=== PATIENT | male | born 1990 | race Caucasian/White ===

== ENCOUNTER 2024-12-09 12:01 | Emergency (ER) | payer BC, SELFPAY ==
--- OUTSIDE RECORDS SUMMARY | 2024-12-09 12:04 | XMS REPORT | Continuity of Care Document ---
Author Name Unknown Address [address] [facility] [place] [address] [facility] Address [address] [facility] [place] [address] Care Team Providers Care Jordan Man Name Role Phone PCP, NO Primary Care Physician Unavailab Natasha Davidson Attending Clinician Unavailable ALISHA MICHEL Attending Clinician Unavailable NAN AGUILAR Attending Clinician Unavailable Physician, No Primary or Family Admitting Clinic gunjan Unavailable Payers Payer Name Policy Type Policy Number Effective Date Expirati on Date Source Allergies, Adverse Reactions, Alerts Allergy Name Allergy Type Status Severity Reaction(s) Onset Date Inactive Date Treating Clinician Comments Source Sulfa (Sulfona mide Antibiot ics) DA Active U UNKN 2023-03 0 00:00: 00 [facility] are [facility] Sulfur Dioxide Allergy to substanc e Active [facility] Social History Smoking Status Start Date Stop Date Source Never Smoker [facility] Medications Ordered Medication Name Filled Medication Name Start Date Stop Date Current Medication? Ordering Clinician Indication Dosage Frequency Signature (SIG) Comments Components Source Bromfed DM 2 mg-30 mg-10 mg/5 mL oral syrup Take 10 mL every 4 hours by oral route. Bromfed DM 2 mg-30 mg-10 mg/5 mL oral syrup Take 10 mL every 4 hours by oral route. No 10mL Q4H Bromfed DM 2 mg-30 mg-10 mg/5 mL oral syrup Take 10 mL every 4 hours by oral route. [facility] Medrol (Angus) 4 mg tablets in a dose pack take as directed Medrol (Angus) 4 mg tablets in a dose pack take as directed No Medrol (Angus) 4 mg tablets in a dose pack take as directed [facility] ondansetron 4 mg dis[address] ing tablet Place 1 tablet twice a day by translingua l route. ondansetron 4 [address] tablet Place 1 tablet twice a day by translingua l route. No 1 BID ondansetro n 4 mg disinte[address] ting tablet Place 1 tablet twice a day by translingu al route. [facility] Vital Signs Vital Name Observation Time Observation Value Comments S ource Body Weight 2024-08-10 00:00:00 4548 [oz_av] [facility] BP Diastolic 2024-08-10 00:00:00 86 mm[Hg] [facility] BMI (Body Mass Index) 2024-08-10 00:00:00 38.6 kg/m2 [facility] Height 2024-08-10 00:00:00 72 [in_i] [facility] BP Systolic 2024-08-10 00:00:00 126 mm[Hg] [facility] BMI (Body Mass Index) 2024-05-05 00:00:00 38.6 kg/m2 [facility] BP Systolic 2024-05-05 00:00:00 130 mm[Hg] [facility] Body Weight 2024-05-05 00:00:00 4552 [oz_av] [facility] BP Diastolic 2024-05-05 00:00:00 85 mm[Hg] [facility] Height 2024-05-05 00:00:00 72 [in_i] [facility] BMI (Body Mass Index) 2024-04-08 00:00:00 38.4 kg/m2 [facility] BP Systolic 2024-04-08 00:00:00 121 mm[Hg] [facility] Height 2024-04-08 00:00:00 72 [in_i] [facility] Body Weight 2024-04-08 00:00:00 4534 [oz_av] [facility] BP Diastolic 2024-04-08 00:00:00 80 mm[Hg] [facility] Body Weight 2024-03-30 00:00:00 4560 [oz_av] [facility] BP Systolic 2024-03-30 00:00:00 150 mm[Hg] [facility] BP Diastolic 2024-03-30 00:00:00 91 mm[Hg] [facility] BMI (Body Mass Index) 2024-03-30 00:00:00 38.7 kg/m2 [facility] Height 2024-03-30 00:00:00 72 [in_i] [facility] Encounters Start Date/Time End Date/Time Encounter Type Admission Type Attending [facility] Care Department Encounter ID Source 2023-12-02 12:35:36 Emergency HFD HFD [id number] [facility] Depart ent 2024-08-10 00:00:00 2024-08-10 00:00:00 Abigail Beckett, INDUSTRIAL SAFETY AND HEALTH MANAGER: [address], [place] [id number] , Ph[address] [facility]_ Main Office [id number] [facility] 2024-05-05 00:00:00 2024-05-05 00:00:00 Abigail Beckett, INDUSTRIAL SAFETY AND HEALTH MANAGER: [address], [place] [id number] , Ph[address] [facility]_ Main Office [id number] [facility] 2024-04-08 00:00:00 2024-04-08 00:00:00 Abigail Beckett, INDUSTRIAL SAFETY AND HEALTH MANAGER: [address], [place] [address] , Ph[address] [facility]_ Main Office [id number] [facility] 2024-03-30 00:00:00 2024-03-30 00:00:00 Abigail Beckett, INDUSTRIAL SAFETY AND HEALTH MANAGER: [address], [place] [id number] , Ph. [facility]_ Main Office [id number] [facility] 2023-12-02 11:58:00 2023-12-02 15:55:00 Emergency EM Natasha Francis [facility] [id number] [facility] are [facility] 2023-09-10 13:25:44 2023-09-10 13:25:44 Outpatient ALISHA MICHEL [facility] [id number] [facility] 2023-07-23 16:38:27 2023-07-23 16:38:27 Outpatient NAN AGUILAR [facility] [id number] [facility] Results Test Description Test Time Test Comments Results Result Co mments Source [facility] - Serum or [id number] 00:00:00* Test Item Value Reference Range Interpretation Comme nts sodium (test code = sodium) 139 mmol/L 136-145 potassium (test code = potassium) 4.8 mmol/L 3.5-5.5 chloride (test code = chloride) 100 mmol/L 98-107 CO2 (test code = CO2) 23 mmol/ L 23-31 glucose (test code = glucose) 74 mg/dL 70-99 BUN (test code = BUN) 14 mg/dL 6-20 creatinine (test code = creatinine) 1.1 mg/dL 0.7-1.2 calcium (test code = calcium) 9.7 mg/dL 8.5-10.5 total protein (test code = total protein) 7.2 g/dL 6.0-8.3 albumin (test code = albumin) 4.5 g/dL 3.5-5.2 total bilirubin (test code = total bilirubin) 0.4 mg/dL 0.0-1.2 alkaline phosphatase (test code = alkaline phosphatase) 110 U/L 44-147 AST (SGOT) (test code = AST (SGOT)) 22 U/L 0-40 ALT (SGPT) (test code = ALT (SGPT)) 33 U/L 0-41 globulin (test code = globulin) 2.7 g/dL 1.7-3.7 A/G ratio (test code = A/G ratio) 1.7 calc. 1.1-2.9 BUN/creatinine ratio (test code = BUN/creatinine ratio) 12.7 calc 10.0-28.0 eGFR (test code = eGFR) 90.902 mL/min/1.73A? >60.000 [facility] - Serum or [id number] 00:00:00* Test Item Value Reference Range Interpretation Comme nts cholesterol (test code = cholesterol) 213 mg/dL 0-200 H triglycerides (test code = triglycerides) 91 mg/dL 10-150 HDL cholesterol (test code = HDL cholesterol) 53 mg/dL >40 HDL risk factor (test code = HDL risk factor) 4.0 calc. VLDL cholesterol (test code = VLDL cholesterol) 18 calc dldl (test code = dldl) 145 mg/dL <100 H [facility] and TSH panel - Serum or [id number] 00:00:00* Test Item Value Reference Range Interpretation Comme nts TSH (test code = TSH) 1.080 uIU/mL 0.500-4.530 free T4 (test code = free T4) 1.33 NG/dL 0.80-1.73 [facility] Auto Differential panel - [id number] 00:00:00* Test Item Value Reference Range Interpretation Comme nts WBC (test code = WBC) 7.5 10 3.7-12.0 RBC (test code = RBC) 4.88 10 3.60-5.50 HGB (test code = HGB) 15.0 g/dL 13.5-17.5 HCT (test code = HCT) 46.4 % 35.0-53.0 MCV (test code = MCV) 95.1 um 80.0-102.0 MCH (test code = MCH) 30.8 pg 25.0-34.1 MCHC (test code = MCHC) 32.4 g/dL 29.0-35.0 RDW (test code = RDW) 13.8 % 10.9-16.9 plt (test code = plt) 314 10 136-392 MPV (test code = MPV) 9.3 um 7.4-11.1 gran % (test code = gran %) 53.1 % 36.0-78.0 lymph % (test code = lymph %) 33.4 % 12.0-48.0 mono % (test code = mono %) 10.8 % 0.0-13.0 eos % (test code = eos %) 2 % 0-8 baso % (test code = baso %) 1 % 0-2 gran # (test code = gran #) 4.0 10 1.2-6.8 lymph # (test code = lymph #) 2.5 10 1.2-3.2 mono # (test code = mono #) 0.8 10 0.3-0.8 eos # (test code = eos #) 0.1 10 0.0-0.4 baso # (test code = baso #) 0.1 10 0.0-0.2 [facility] - Urine by Automated test strip 2024-04-08 11:32:00* Test Item Value Reference Range Interpretation Comme nts Leukocytes (test code = Leukocytes) Negative Nitrite (test code = Nitrite) negative Urobilinogen (test code = Urobilinogen) 0.2 Protein (test code = Protein) Negative pH (test code = pH) 6.0 Blood (test code = Blood) Negative Specific [place] (test code = Specific [place]) 1.025 Ketone (test code = Ketone) Negative Bilirubin (test code = Bilirubin) Negative Glucose (test code = Glucose) Negative Appearance (test code = Appearance) Clear Color (test code = Color) Pale Yellow [facility] Medical[facility] HIGH [id number] 13:24:00* Test Item Value Reference Range Interpretation Comme nts TROP-I HIGH SENSITIVITY (test code = TROPIHS) < 2 pg/mL 0-20 N 99th Percentile Upper Reference Limit (URL):Females: 14 pg/mLMales: 20 pg/mL The demonstration of a rise or fall (over a 2hour period)of 5 pg/mL or greater may be clinically significant. A riseor fall of 20 pg/mL or greater is considered definitivelysignificant of possible acute myocardial injury. NOTE: Results from different methodologies should not becompared as quantitative results vary by method. COMPREHENSIVE METABOLIC [id number] 13:18:00* Test Item Value Reference Range Interpretation Comme nts SODIUM (test code = NA) 137 mmol/L 135-145 N POTASSIUM (test code = K) 3.9 mmol/L 3.6-5.0 N CHLORIDE (test code = CL) 104 mmol/L 101-111 N CARBON DIOXIDE (test code = CO2) 23 mmol/L 21-31 N GLUCOSE (test code = GLU) 111 mg/dl 70-100 H BLOOD UREA NITROGEN (test code = BUN) 13 mg/dl 6-20 N GLOMERULAR FILTRATION RATE (test code = GFR) >=60 max estimate >60 The Glomerular Filtration Rate is a calculated parameterbased on serum Creatinine, patient age and sex. GFR valuesless than 60 mL/min/1.73 square meters are indicative ofChronic Kidney Disease. Values less than 15 mL/min/1.73square meters indicate Kidney failure. The calculation forGFR is based on the CKD-EPI (202) calculation. This formulais race indifferent and is the recommended formula for GFRby the National Kidney Foundation for Adults.The GFR will not calculate if the sex is unknown or if thepatient's age is <18 years. CREATININE (test code = CREAT) 1.04 mg/dL 0.64-1.27 N TOTAL PROTEIN (test code = PROT) 7.2 g/dL 6.7-8.2 N ALBUMIN (test code = ALB) 3.8 g/dL 3.2-5.5 N CALCIUM (test code = CA) 9.1 mg/dL 8.5-10.5 N BILIRUBIN TOTAL (test code = BILT) 0.90 mg/dL 0.2-1.3 N SGOT/AST (test code = AST) 29 U/L 10-42 N SGPT/ALT (test code = ALT) 40 U/L 10-60 N ALKALINE PHOSPHATASE (test code = ALKP) 82 U/L 42-121 N INDEX HEMOLYSIS (test code = HEMINDEX) 0 Index/DL See_Comment [Automated messa ge] The system which generated this result transmitted reference range: 1 NORMAL. The reference range was not used to interpret this result as normal/abnormal. INDEX ICTERIC (test code = ICTINDEX) 1 Index/DL See_Comment [Automated messa ge] The system which generated this result transmitted reference range: 1 NORMAL. The reference range was not used to interpret this result as normal/abnormal. INDEX LIPEMIA (test code = LIPINDEX) 0 Index/DL See_Comment [Automated messa ge] The system which generated this result transmitted reference range: 1 NORMAL. The reference range was not used to interpret this result as normal/abnormal. CBC W/AUTO [id number] 12:53:00* Test Item Value Reference Range Interpretation Comme nts WHITE BLOOD CELL (test code = WBC) 8.3 x10 3/uL 3.2-11.5 N RED BLOOD CELL (test code = RBC) 5.09 x10(6)/m 4.20-5.70 N HEMOGLOBIN (test code = HGB) 15.7 g/dL 12.9-17.3 N HEMATOCRIT (test code = HCT) 46.6 % 38.7-51.0 N MEAN CELL VOLUME (test code = MCV) 92 fL 80-100 N MEAN CELL HGB (test code = MCH) 30.8 pg 26.7-33.3 N MEAN CELL HGB CONCENTRATION (test code = MCHC) 33.7 g/dL 30.0-34.0 N RED CELL DISTRIBUTION WIDTH (test code = RDW) 11.8 % 11.3-14.5 N PLATELET COUNT (test code = PLT) 270 x10 3/uL 130-408 N MEAN PLATELET VOLUME (test c ode = MPV) 10.4 fL 8.6-12.6 N NEUTROPHIL % (test code = NT%) 61.6 % 40.0-70.0 N LYMPHOCYTE % (test code = LY%) 26.7 % 20-40 N MONOCYTE % (test code = MO%) 9.9 % 1-10 N EOSINOPHIL % (test code = EO%) 1.2 % 0.0-5.0 N BASOPHIL % (test code = BA%) 0.4 % 0.0-1.0 N NUCLEATED RBC % (test code = NRBC%) 0.0 % 0.0-0.9 N NEUTROPHIL # (test code = NT#) 5.1 x10 3/uL 1.6-7.2 N IMMATURE GRANULOCYTE # (test code = IG#) 0.02 x10 3/uL 0-0.03 N LYMPHOCYTE # (test code = LY#) 2.21 x10 3/uL 1.1-2.7 N MONOCYTE # (test code = MO#) 0.8 x10 3/uL 0.3-0.8 N EOSINOPHIL # (test code = EO#) 0.1 x10 3/uL 0.0-0.5 N IMMATURE GRANULOCYTE % (test code = IG%) 0.2 % 0.0-2.0 N BASOPHIL # (test code = BA#) 0.0 x10 3/uL 0.0-0.1 N Notes Date/Time Note Provider Source 2023-12-02 12:32:00 [id number] [facility] [address] [place] [address] PATIENT NAME: PHIL BROWNLEE ADMIT DATE: 12/02/23 ACCOUNT NO: [id number] ROOM NO: AGE: 33 REPORT TYPE: ELECTROCARDIOGRAM SEX: M ADMITTING PHYSICIAN: ATTENDING PHYSICIAN: Order: [id number] Test Reason : UNKNOWN Test Date/Time Stamp: ThuDec 02 2023 12:32:15 Blood Pressure : / mmHG Vent. Rate : 083 BPM Atrial Rate : 083 BPM P-R Int : 200 ms QRS Dur : 094 ms QT Int : 364 ms P-R-T Axes : 042 003 013 degrees QTc Int : 427 ms Normal sinus rhythm Normal ECG No previous ECGs available Confirmed by MD Rose Yasir ([id number]) on 12/02/2023 3:32:52 PM Referred By: Natasha Francis Confirmed by:Sudhakar Rose MD at 1532 PATIENT NAME PHIL BROWNLEE [facility] 2023-12-02 12:00:00 [facility] EMERGENCY PROVIDER REPORT REPORT#:[id number] REPORT STATUS: Signed DATE:12/02/23 TIME: 1200 PATIENT: PHIL BROWNLEE UNIT #: [id number] ROOM: BED: : 90 AGE: 33 SEX: M PCP PHYS: No Primary or Family Phys SERVICE AUTHOR: Natasha Francis MD REP SRV REP SRV TM: 1200 * ALL edits or amendments must be made on the electronic/computer document * HPI-General Illness Free Text HPI Notes Free Text HPI Notes Pt is a 33 y/o M with no PMH, who presents for posterior head and neck pain following a fall from ladder from at least 5 ft prior to arrival. Lost consciousness. Pt does not remember what happened, only that he was climbing a ladder and thinks the gutter came loose, causing ladder to fall over. Denies weakness, numbness, CP, SOB, back pain, hip pain, extremity pain, vomiting, vision changes. General Initial Greet Date/Time 12/02/23 1158 Presentation Chief Complaint Headache Review of Systems Free Text ROS Notes Free Text ROS Notes Constitutional: Denies fevers or chills Eyes: Denies visual disturbances ENMT: Denies sore throat Respiratory: Denies SOB Cardiac: Denies chest pain GI: Denies abdominal pain, nausea, vomiting, diarrhea : Denies dysuria Musculoskeletal: Denies myalgias Neurologic: reports headaches, denies numbness, tingling, or weakness Psychiatric: Denies agitation Skin: Denies wounds or rashes Past Medical History - Adult Stated Complaint FALL, HEAD PAIN Allergies Coded Allergies: Sulfa (Sulfonamide Antibiotics) (UNKN 12/02/23) Past Medical History: Denies: Diabetes mellitus, Hypertension, Kidney disease/stones. Alcohol Use Denies EtOH use Drug Use Denies recreational drugs Smoking status for patients 13 years old or older: Never Smoker Physical Exam Vital Signs Vital Signs First Documented: Result Date Time Pulse Ox 99 12/01 1158 B/P 131/89 12/01 1158 B/P Mean 103 10 1158 O2 Delivery Room air 12/01 1158 Temp 36.7 12/01 1158 Pulse 85 10 1158 Resp 16 12/01 1158 Last Documented: Result Date Time Pulse Ox 100 12/01 1554 B/P 129/76 12/01 1554 B/P Mean 93 12/01 1554 O2 Delivery Room air 12/01 155 Temp 36.7 10 1554 Pulse 86 12/01 1554 Resp 18 12/01 1554 Review of Vital Signs Reviewed, Vital signs normal Free Text PE Notes Free Text PE Notes GENERAL: Alert, oriented. In no acute distress. Interactive, follows commands. Responds appropriately to questions. EYES: PERRLA, EOM intact, clear conjunctiva and sclera, no nystagmus. HENT: No LAD. No tonsillar exudate or oropharyngeal erythema or edema. Neck supple, no rigidity. Posterior neck and occipital tenderness. CHEST: Lungs clear to auscultation bilaterally, no distress. No chest wall tenderness. CARDIOVASCULAR: Radial pulses 2+ bilaterally and symmetric, normal heart sounds, normal pulses in all extremities, regular rate rhythm, no ectopy, no murmurs or muffled heart sounds. ABDOMEN: Soft, no tenderness with palpation, no guarding, no rebound, no distention. Normoactive bowel sounds. No masses. BACK/SPINE: No midline vertebral or paraspinal tenderness with palpation. No CVA tenderness. EXTREMITIES: No obvious deformities or wounds. Full, painless range of motion of all extremities. No edema. SKIN: No rashes or lesions. Warm, dry. NEURO: AAOX3. CN II-XII grossly intact. Sensation grossly intact. Strength 5/5 in bilateral UE and LE. Normal gait. PSYCH: Appropriate mood and affect. Interpretation Diagnostics Lab Results Interpretation Considerations Independ review imaging Results Laboratory Tests 12/02/23 1226: [Embedded Image Not Available] Laboratory Tests: 12/01 12/01 1226 1226 Chemistry Sodium (135 - 145 mmol/L) 137 Potassium (3.6 - 5.0 mmol/L) 3.9 Chloride (101 - 111 mmol/L) 104 Carbon Dioxide (21 - 31 mmol/L) 23 BUN (6 - 20 mg/dl) 13 Creatinine (0.64 - 1.27 mg/dL) 1.04 Glomerular Filtr Rate (>60) >=60 max estimate Glucose (70 - 100 mg/dl) 111 H Calcium (8.5 - 10.5 mg/dL) 9.1 Total Bilirubin (0.2 - 1.3 mg/dL) 0.90 AST (10 - 42 U/L) 29 ALT (10 - 60 U/L) 40 Total Alk Phosphatase (42 - 121 U/L) 82 Troponin I High Sens (0 - 20 pg/mL) < 2 Total Protein (6.7 - 8.2 g/dL) 7.2 Albumin (3.2 - 5.5 g/dL) 3.8 Specimen Appearance (1 NORMAL Index/DL) 1 Specimen Hemolysis (1 NORMAL Index/DL) 0 Hematology WBC (3.2 - 11.5 x10 3/uL) 8.3 RBC (4.20 - 5.70 x10(6)/m) 5.09 Hgb (12.9 - 17.3 g/dL) 15.7 Hct (38.7 - 51.0 %) 46.6 MCV (80 - 100 fL) 92 MCH (26.7 - 33.3 pg) 30.8 MCHC (30.0 - 34.0 g/dL) 33.7 RDW (11.3 - 14.5 %) 11.8 Plt Count (130 - 408 x10 3/uL) 270 MPV (8.6 - 12.6 fL) 10.4 Neut % (Auto) (40.0 - 70.0 %) 61.6 Lymph % (Auto) (20 - 40 %) 26.7 Holt % (Auto) (1 - 10 %) 9.9 Eos % (Auto) (0.0 - 5.0 %) 1.2 Baso % (Auto) (0.0 - 1.0 %) 0.4 Neut # (Auto) (1.6 - 7.2 x10 3/uL) 5.1 Lymph # (Auto) (1.1 - 2.7 x10 3/uL) 2.21 Holt # (Auto) (0.3 - 0.8 x10 3/uL) 0.8 Eos # (Auto) (0.0 - 0.5 x10 3/uL) 0.1 Baso # (Auto) (0.0 - 0.1 x10 3/uL) 0.0 Immature Gran % (0.0 - 2.0 %) 0.2 Nucleated RBC % (0.0 - 0.9 %) 0.0 Recent Impressions: RADIOLOGY - XR PELVIS 1/2 VIEWS 12/01 1300 Report Impression - Status: SIGNED Entered: 12/02/2023 132 IMPRESSION: No active pulmonary disease. PELVIS ONE VIEW: COMPARISON:None FINDINGS: No fracture or dislocation seen. No focal osseous lesions are evident. IMPRESSION: No fracture-dislocations evident. Impression By: [email or web address] - Mo Sauceda MD RADIOLOGY - XR CHEST 1 V 12/01 1300 Report Impression - Status: SIGNED Entered: 12/02/2023 1321 IMPRESSION: No active pulmonary disease. PELVIS ONE VIEW: COMPARISON:None FINDINGS: No fracture or dislocation seen. No focal osseous lesions are evident. IMPRESSION: No fracture-dislocations evident. Impression By: [email or web address] - Mo Sauceda MD CAT SCAN - CT HEAD/BRAIN W/O CONT 12/01 1358 Report Impression - Status: SIGNED Entered: 12/02/20231415 IMPRESSION: No acute intracranial abnormality. Of note: If patient has persistent unexplained symptomatology, MRI may be helpful for further evaluation. ========= CT CERVICAL SPINE WITHOUT CONTRAST: INDICATIONS: Trauma. Comparison: None. TECHNIQUE: Axial thin section noncontrast CT imaging of the cervical spine with multiplanar reconstructions. One or more of the following dose reduction techniques were used: Automated exposure control, adjustment of the mA and or Kv according to patient size, and / or utilization of iterative reconstruction technique. Limitation :Ligamentous, spinal cord, and/or vascular abnormalities cannot be excluded on the basis of this examination. FINDINGS: Cervical vertebral bodies demonstrate normal alignment.The facet joints are aligned. The vertebral body heights are maintained. Some degenerative of cervical spine with loss of disc height and marginal spurring. Mild facet and uncovertebral arthropathy. No displaced fracture or subluxation. No significant prevertebral soft tissue swelling IMPRESSION: Some degenerative changes. Impression By: [email or web address] Yeni Dill MD CAT SCAN - CT C-SPINE W/O CONT 12/01 1358 Report Impression - Status: SIGNED Entered: 12/02/20231415 IMPRESSION: No acute intracranial abnormality. Of note: If patient has persistent unexplained symptomatology, MRI may be helpful for further evaluation. ========= CT CERVICAL SPINE WITHOUT CONTRAST: INDICATIONS: Trauma. Comparison: None. TECHNIQUE: Axial thin section noncontrast CT imaging of the cervical spine with multiplanar reconstructions. One or more of the following dose reduction techniques were used: Automated exposure control, adjustment of the mA and or Kv according to patient size, and / or utilization of iterative reconstruction technique. Limitation :Ligamentous, spinal cord, and/or vascular abnormalities cannot be excluded on the basis of this examination. FINDINGS: Cervical vertebral bodies demonstrate normal alignment.The facet joints are aligned. The vertebral body heights are maintained. Some degenerative of cervical spine with loss of disc height and marginal spurring. Mild facet and uncovertebral arthropathy. No displaced fracture or subluxation. No significant prevertebral soft tissue swelling IMPRESSION: Some degenerative changes. Impression By: [email or web address] - Amarilis Dill MD Lab Imaging Statement Laboratory radiographic studies reviewed and considered in the medical decision-making. ECG #1 Interpretation Text/Dict Note ECG interpreted by me at 1240 ECG ordered to evaluate for ischemia in the setting of Rate 83 Normal Sinus Rhythm No axis deviation No NICHOLE, STD, or TWIs concerning for ischemia. Re-Evaluation MDM Free Text MDM Notes Free Text MDM Notes Patient presents with head, neck pain that potentially represents a highly morbid condition with a possible threat to life or bodily function. Differential diagnosis is broad. Medical decision making is complex. I am concerned about multiple conditions that could put the patient at risk for morbidity, including ICH, cranial fracture, C-spine fracture, rib or pelvis fracture, concussion Independent historians include EMS. Will obtain and review comprehensive labs and appropriate imaging as warranted. Labs, EKG, and imaging independently interpreted by me. No ICH or fracture noted on CT imaging. Incidental findings discussed with patient and his . No NICHOLE on EKG. Troponin negative. No neuro deficits. Pt now at baseline. Pain improved with Tylenol, fluids. ED Course Medication(s) Ordered Medication(s) Ordered: Central Nervous System Agents Sig/Charles Start time Last Medication Dose Route Stop Time Status Admin Acetaminophen 1,000 MG ONCE ONE 12/01 1415 DC 12/01 IV 12/01 1416 1441 Electrolytic, Caloric, And Samir Sig/Charles Start time Last Medication Dose Route Stop Time Status Admin Sodium Chloride 1,000 ML ONCE ONE 12/01 1200 DC 12/01 IV 12/01 1201 1239 Patient Discharge Departure Vital Signs/Condition Vital Signs First Documented: Result Date Time Pulse Ox 99 12/01 1158 B/P 131/89 12/01 1158 B/P Mean 103 12/01 1158 O2 Delivery Room air 12/01 115 Temp 36.7 12/01 1158 Pulse 85 12/01 1158 Resp 16 12/01 1158 Last Documented: Result Date Time Pulse Ox 100 12/01 1554 B/P 129/76 12/01 1554 B/P Mean 93 12/01 1554 O2 Delivery Room air 12/01 1553 Temp 36.7 12/01 155 Pulse 86 12/01 1554 Resp 18 12/01 1554 All vital signs available at the time of this entry have been reviewed. Condition Stable, Improved Clinical Impression Clinical Impression Primary Impression: Fall from ladder Secondary Impressions: Concussion Ruled Out Impressions: ICH (intracerebral hemorrhage) Disposition Decision Discharge )( Discharged to Home Yes )( Time 1443 )( Date 12/02/23 Discharge/Care Plan Counseled Regarding Diagnosis, Lab results, Imaging studies, When to return to ED Patient Instructions ED Fall Prevention Additional Instructions Please use ice or ibuprofen for pain. Return to the ER for new or worsening pain , vomiting, blood in stool or urine, weakness or numbness on one side of the body, or passing out. Departure Forms [facility] Discharge Note I have spoken with the patient and/or caregivers. I have explained the patient's condition, diagnoses and treatment plan based on the information available to me at this time. I have answered the patient's and/or caregiver's questions and addressed any concerns. The patient and/or caregivers have as good an understanding of the patient's diagnosis, condition and treatment plan as can be expected at this point. The vital signs have been stable. The patient's condition is stable and appropriate for discharge from the emergency department. The patient will pursue further outpatient evaluation with the primary care physician or other designated or consulting physician as outlined in the discharge instructions. The patient and/or caregivers are agreeable to this plan of care and follow-up instructions have been explained in detail. The patient and/or caregivers have received these instructions in written format and have expressed an understanding of the discharge instructions. The patient and/or caregivers are aware that any significant change in condition or worsening of symptoms should prompt an immediate return to this or the closest emergency department or a call to 911. at 1805 RPT #:[id number] END OF REPORT SHAYYW
[2024-12-09] MEDS ORDERED: predniSONE 20 MG TAB ONE (12:15)
[2024-12-09] MEDS ORDERED: NA CHLORIDE 0.9% 1,000 ML ONE (12:16)
[2024-12-09] MEDS ORDERED: DIPHENHYDRAMINE 50 MG/ML VIAL ONE (12:16)
[2024-12-09] MEDS ORDERED: FAMOTIDINE 20 MG/2 ML VIAL IV ONE (12:16)
[2024-12-09 12:39] LABS: Absolute Lymphocytes (CBC) 4.5 K/uL (0.7-4.9); Hematocrit 46.3 % (39.6-49.0); Hemoglobin 15.3 g/dL (13.6-17.9); MCH 30.7 pg (27.0-35.0); MCHC 33.1 g/dL (32.0-36.0); MCV 92.7 fL (80-100); MPV 8.8 fL (7.6-11.3); Nucleated RBC Absolute Count 0.0 (0-0); Nucleated Red Blood Cells % 0.1 % (0-0); RBC Red Blood Cell Count 5.00 M/uL (4.33-5.43); White Blood Count 8.80 thou/uL (4.3-10.9)
[2024-12-09 12:57] LABS: ALT/SGPT 37.0 U/L (16-61); Albumin 3.1 g/dL (3.4-5.0); Albumin/Globulin Ratio 1.0 (1.1-1.8); Alkaline Phosphatase 74.0 U/L (45-117); Anion Gap 9.8 mEq/L (5.0-15.0); BUN Blood Urea Nitrogen 14.0 mg/dL (7-18); Globulin 3.0 g/dL (2.3-3.5); Glucose Level 139.0 mg/dL (74-106)
[2024-12-09 12:58] LABS: AST/SGOT 28.0 U/L (15-37); Potassium 3.8 mEq/L (3.5-5.1)
--- NOTE | 2024-12-09 13:25 | ER ---
Nurse's Notes [facility] Name: Edson Marvin Age: 34 yrs Sex: Male : 1990 Arrival Date: 12/09/2024 Time: 12:01 Bed 2 Private MD: Diagnosis: Insect allergy status;Urticaria, unspecified;Angioneurotic edema Presentation: 12/09 12:05 Chief complaint: EMS states: ALLERGIC REACTION. AFTER STUNG BY WASP BEHIND RIGHT EAR 45 db MIN AGO. WENT TO [facility] HAD HIVES COMPLAINED THROAT [facility]CHY [facility] GAVE .3 EPI LEFT ARM, 20 PEPCID IV, 20 ZYRTEC IV, 20 DEXAMETHASONE IV, 1L BOLUS SALINE. PT REPORTS FEELS BETTER NOW. FACE RED. IN NAD. Coronavirus screen: Client denies travel out of the [place] in the last 14 days. At this time, the client does not indicate any symptoms associated with coronavirus-19. Ebola Screen: Patient negative for fever greater than or equal to 101.5 degrees Fahrenheit, and additional compatible Ebola Virus Disease symptoms Patient denies exposure to infectious person. Patient denies travel to an Ebola-affected area in the 21 days before illness onset. No symptoms or risks identified at this time. Initial Sepsis Screen: Does the patient meet any 2 criteria? No. Patient's initial sepsis screen is negative. Does the patient have a suspected source of infection? No. Patient's initial sepsis screen is negative. Risk Assessment: Do you want to hurt yourself or someone else? Patient reports no desire to harm self or others. Onset of symptoms was December 09, 2024 at 11:00. Care prior to arrival: Medication(s) given: Normal saline infusion, 1000 mL, EPI, PEPCID, ZYRTEC, DEXAMETHASONE SEE NOTE IV initiated. 18 GA, in the right antecubital area. 12:05 Method Of Arrival: EMS: [facility] db 12:05 Acuity: VIRAJ 2 db Triage Assessment: 12:09 General: Appears in no apparent distress. comfortable, Behavior is calm, cooperative. db Pain: Denies pain. EENT: No deficits noted. No signs and/or symptoms were reported regarding the EENT system. Oral mucosa is moist. Neuro: Level of Consciousness is awake, alert, obeys commands, Oriented to person, place, time, situation. Respiratory: Airway is patent Respiratory effort is even, unlabored, Respiratory pattern is regular, symmetrical. Derm: Skin is intact, Skin is flushed, red. Historical: - Allergies: 12:09 Sulfa (Sulfonamide Antibiotics); db - Home Meds: 12:09 None [Active]; db - PMHx: 12:09 None; db - PSHx: 12:09 None; db - Immunization history:: Adult Immunizations unknown. - Infectious Disease History:: Denies. - Social history:: Smoking status: unknown. Screenin:36 [facility] ED Fall Risk Assessment (Adult) History of falling in the last 3 months, db including since admission No falls in past 3 months (0 pts) Confusion or Disorientation No (0 pts) Intoxicated or Sedated No (0 pts) Impaired Gait No (0 pts) Mobility Assist Device Used No (0 pt) Altered Elimination No (0 pt) Score/Fall Risk Level 0 - 2 = Low Risk Oriented to surroundings, Maintained a safe environment. Abuse screen: Denies threats or abuse. Denies injuries from another. Nutritional screening: No deficits noted. Tuberculosis screening: No symptoms or risk factors identified. Assessment: 12:00 Reassessment: SEE TRIAGE FOR INITIAL ASSESSMENT. db 12:20 Reassessment: Patient appears in no apparent distress at this time. Patient and/or db family updated on plan of care and expected duration. Pain level reassessed. Patient is alert, oriented x 3, equal unlabored respirations, skin warm/dry/pink. General: Appears in no apparent distress. comfortable, Behavior is calm, cooperative. Derm: Rash noted that is red, raised, on face, back, buttocks, chest, abdomen, pelvis, right leg, left leg and neck. 13:55 Reassessment: Patient appears in no apparent distress at this time. Patient and/or db family updated on plan of care and expected duration. Pain level reassessed. Patient is alert, oriented x 3, equal unlabored respirations, skin warm/dry/pink. Patient states feeling better. Patient states symptoms have improved. Neuro: Level of Consciousness is awake, alert, obeys commands, Oriented to person, place, time, situation. Respiratory: Airway is patent Respiratory effort is even, unlabored, Respiratory pattern is regular, symmetrical. Vital Signs: 12:05 BP 127 / 85; Pulse 77; Resp 18; Temp 97.5; Pulse Ox 99% ; Weight 124.74 kg; Height 6 db ft. 0 in. ; 12:30 BP 125 / 86; Pulse 87; Resp 16; Pulse Ox 99% on R/A; db 13:00 BP 131 / 78; Pulse 73; Resp 16; Pulse Ox 100% on R/A; db 13:30 BP 138 / 89; Pulse 72; Resp 16; Pulse Ox 97% on R/A; db 12:05 Body Mass Index 37.30 (124.74 kg, 182.88 cm) db ED Course: 11:57 Arm band placed on Patient placed in an exam room. db 12:03 Patient arrived in ED. eb 12:05 Perlita Munguia, RN is Primary Nurse. db 12:05 Flash Crawford MD is Attending Physician. farhat 12:09 Triage completed. db 12:33 EKG done, by ED staff, reviewed by Flash Crawford MD. pm7 13:23 Oliver Sow MD is Referral Physician. farhat 13:56 Patient has correct armband on for positive identification. Bed in low position. Call db light in reach. Side rails up X 1. Provided Education on: ALLERGIC REACTION,, DC, PRESCRIPTIONS AND FOLLOWUP. Client placed on continuous cardiac and pulse oximetry monitoring. NIBP monitoring applied. playground monitor on. Pulse ox on. NIBP on. Warm blanket given. Pillow given. 13:56 No provider procedures requiring assistance completed. IV discontinued, intact, db bleeding controlled, No redness/swelling at site. Administered Medications: 12:25 Drug: NS 0.9% IV 1000 ml IV at 1000 ml once; to be given as a bolus over 60 minutes db Route: IV; Rate: 1000 ml; Site: right antecubital; 13:30 Follow up: Response: No adverse reaction; IV Status: Completed infusion; IV Intake: db 1000ml 12:25 Drug: predniSONE PO 60 mg PO once Route: PO; db 13:30 Follow up: Response: No adverse reaction db 12:25 Drug: Famotidine IVP 40 mg IVP once; dilute with 10 mL 0.9% NaCl; give over 2 minutes db {Note: [address] CRAWFORD.} Route: IVP; Site: right antecubital; 13:30 Follow up: Response: No adverse reaction db 12:25 Drug: diphenhydrAMINE IVP 50 mg IVP once Route: IVP; Site: right antecubital; db 13:30 Follow up: Response: No adverse reaction db 12:34 Not Given (Physician Discretion): [id number] mg IVP once db Medication: 13:56 VIS not applicable for this client. db Intake: 13:30 IV: 1000ml; Total: 1000ml. db Outcome: 13:24 Discharge ordered by . farhat 13:56 Discharged to home ambulatory, with family, db 13:56 Condition: improved 13:56 Discharge instructions given to patient, family, Instructed on discharge instructions, follow up and referral plans. Prescriptions given X 4, 13:57 Patient left the ED. db Signatures: Flash Crawford MD MD cha Botello, Elizabeth eb Benton, Danielle, RN RN Gena Adams pm7
--- NOTE | 2024-12-09 13:25 | EDPHYS ---
Physician Documentation [facility] Name: Edson Marvin Age: 34 yrs Sex: Male : 1990 Arrival Date: 12/09/2024 Time: 12:01 Bed 2 Private MD: ED Physician Flash Crawford HPI: 12/09 13:17 This 34 yrs old Male presents to ER via EMS with complaints of Allergic farhat Reaction. 13:17 The patient presents with difficulty swallowing, itching, localized swelling, redness farhat of skin. Onset: The symptoms/episode began/occurred just prior to arrival. Associated signs and symptoms: Pertinent positives: light headed, nausea, swelling. Possible causes: bees, wasp. At home the patient or guardian has treated the symptoms with Benadryl, EpiPen, steroids. Severity of symptoms: At their worst the symptoms were moderate in the emergency department the symptoms have improved. The patient has experienced similar episodes in the past, a few times. Historical: - Allergies: 12:09 Sulfa (Sulfonamide Antibiotics); db - Home Meds: 12:09 None [Active]; db - PMHx: 12:09 None; db - PSHx: 12:09 None; db - Immunization history:: Adult Immunizations unknown. - Infectious Disease History:: Denies. - Social history:: Smoking status: unknown. ROS: 13:18 Constitutional: Negative for fever, chills, and weight loss, Eyes: Negative for injury, farhat pain, redness, and discharge, ENT: Negative for injury, pain, and discharge, Neck: Negative for injury, pain, and swelling, Cardiovascular: Negative for chest pain, palpitations, and edema, Respiratory: Negative for shortness of breath, cough, wheezing, and pleuritic chest pain, Abdomen/GI: Negative for abdominal pain, nausea, vomiting, diarrhea, and constipation, Back: Negative for injury and pain, : Negative for injury, bleeding, discharge, and swelling, MS/Extremity: Negative for injury and deformity, Neuro: Negative for headache, weakness, numbness, tingling, and seizure, Psych: Negative for depression, anxiety, suicide ideation, homicidal ideation, and hallucinations, Allergy/Immunology: Negative for hives, rash, and allergies, Endocrine: Negative for neck swelling, polydipsia, polyuria, polyphagia, and marked weight changes, Hematologic/Lymphatic: Negative for swollen nodes, abnormal bleeding, and unusual bruising, 13:18 Skin: Positive for erythema, rash, Exam: 13:18 Constitutional: This is a well developed, well nourished patient who is awake, alert, farhat and in no acute distress. Head/Face: Normocephalic, atraumatic. Eyes: Pupils equal round and reactive to light, extra-ocular motions intact. Lids and lashes normal. Conjunctiva and sclera are non-icteric and not injected. Cornea within normal limits. Periorbital areas with no swelling, redness, or edema. ENT: Nares patent. No nasal discharge, no septal abnormalities noted. Tympanic membranes are normal and external auditory canals are clear. Oropharynx with no redness, swelling, or masses, exudates, or evidence of obstruction, uvula midline. Mucous membranes moist. Neck: Trachea midline, no thyromegaly or masses palpated, and no cervical lymphadenopathy. Supple, full range of motion without nuchal rigidity, or vertebral point tenderness. No Meningismus. Chest/axilla: Normal chest wall appearance and motion. Nontender with no deformity. No lesions are appreciated. Cardiovascular: Regular rate and rhythm with a normal S1 and S2. No gallops, murmurs, or rubs. Normal PMI, no JVD. No pulse deficits. Respiratory: Lungs have equal breath sounds bilaterally, clear to auscultation and percussion. No rales, rhonchi or wheezes noted. No increased work of breathing, no retractions or nasal flaring. Abdomen/GI: Soft, non-tender, with normal bowel sounds. No distension or tympany. No guarding or rebound. No evidence of tenderness throughout. Back: No spinal tenderness. No costovertebral tenderness. Full range of motion. Male : Normal genitalia with no discharge or lesions. Skin: Warm, dry with normal turgor. Normal color with no rashes, no lesions, and no evidence of cellulitis. MS/ Extremity: Pulses equal, no cyanosis. Neurovascular intact. Full, normal range of motion., bilateral aka Neuro: Awake and alert, GCS 15, oriented to person, place, time, and situation. Cranial nerves II-XII grossly intact. Motor strength 5/5 in all extremities. Sensory grossly intact. Cerebellar exam normal. Normal gait. Psych: Awake, alert, with orientation to person, place and time. Behavior, mood, and affect are within normal limits. 13:18 ECG was reviewed by the Attending Physician. Vital Signs: 12:05 BP 127 / 85; Pulse 77; Resp 18; Temp 97.5; Pulse Ox 99% ; Weight 124.74 kg; Height 6 db ft. 0 in. ; 12:30 BP 125 / 86; Pulse 87; Resp 16; Pulse Ox 99% on R/A; db 13:00 BP 131 / 78; Pulse 73; Resp 16; Pulse Ox 100% on R/A; db 13:30 BP 138 / 89; Pulse 72; Resp 16; Pulse Ox 97% on R/A; db 12:05 Body Mass Index 37.30 (124.74 kg, 182.88 cm) db MDM: 12:05 Medical Screening Exam initiated farhat 13:20 Differential diagnosis: anaphylaxis, angioedema, Arrhythmias bronchospasm, Carcinoid farhat Epiglottis Hereditary Angioedema Mastocystosis Myocardial Ischemia Seizure Status Asthmaticus urticaria, Vasovagal Reactions Vocal Cord Dysfunction. Differential Diagnosis altered mental status, sepsis, flu. Data reviewed: vital signs, nurses notes, lab test result(s), EKG, radiologic studies, plain films. Consideration of Admission/Observation Escalation of care including admission/observation considered. I considered the following discharge prescriptions or medication management in the emergency department Medications were administered in the Emergency Department. See MAR. Independent interpretation of the following test(s) in the Emergency Department EKG: See my EKG interpretation above. Test considered but Not performed: CT: NO CT SOFT TISSUE. Care significantly affected by the following chronic conditions: Obesity. 12/09 12: Order name: CBC with Diff; Complete Time: 13:16 [facility] 12/09 12:07 Order name: CMP; Complete Time: 13:16 [facility] 12/09 12:07 Order name: EKG; Complete Time: 12:07 [facility] 12/09 12:07 Order name: EKG - Nurse/Tech; Complete Time: 12:32 [facility] EC:18 Rate is 86 beats/min. Rhythm is regular. RI interval is normal. QRS interval is normal. [facility] QT interval is normal. No Q waves. T waves are Normal. No ST changes noted. Clinical impression: NSR w/ Non-specific ST/T Changes and No evidence of ischemia. Interpreted by me. Reviewed by me. Administered Medications: 12:25 Drug: NS 0.9% IV 1000 ml IV at 1000 ml once; to be given as a bolus over 60 minutes db Route: IV; Rate: 1000 ml; Site: right antecubital; 13:30 Follow up: Response: No adverse reaction; IV Status: Completed infusion; IV Intake: db 1000ml 12:25 Drug: predniSONE PO 60 mg PO once Route: PO; db 13:30 Follow up: Response: No adverse reaction db 12:25 Drug: Famotidine IVP 40 mg IVP once; dilute with 10 mL 0.9% NaCl; give over 2 minutes db {Note: [address] CRAWFORD.} Route: IVP; Site: right antecubital; 13:30 Follow up: Response: No adverse reaction db 12:25 Drug: diphenhydrAMINE IVP 50 mg IVP once Route: IVP; Site: right antecubital; db 13:30 Follow up: Response: No adverse reaction db 12:34 Not Given (Physician Discretion): [id number] mg IVP once db Disposition Summary: 12/09/24 13:24 Discharge Ordered Notes: Location: Home farhat Problem: new farhat Symptoms: have improved farhat Condition: Stable farhat Diagnosis - Insect allergy status farhat - Urticaria, unspecified farhat - Angioneurotic edema farhat Followup: farhat - With: Private Physician - When: 2 - 3 days - Reason: Recheck today's complaints, Continuance of care, Re-evaluation by your physician Followup: farhat - With: Oliver Sow MD - When: 2 - 3 days - Reason: Recheck today's complaints, Continuance of care, Re-evaluation by your physician Discharge Instructions: - Discharge Summary Sheet farhat - Hives farhat - Angioedema farhat - Angioedema, [id number] farhat - Hives, [id number] farhat Forms: - Medication Reconciliation Form [facility] - Antibiotic Education farhat - Prescription Opioid Use [facility] - Patient Portal Instructions [facility] - Leadership Thank You Letter [facility] Prescriptions: - EpiPen 2-Angus - inject 1 application INTRAMUSCULAR route Use as Directed; 2 pen; Refills: 0, farhat Product Selection Permitted - Pepcid 40 mg Oral tablet - take 1 tablet ORAL route 2 times per day; 30 tablet; Refills: 0, Product farhat Selection Permitted - Benadryl 25 mg Oral capsule - take 2 capsule ORAL route every 6 hours As needed; 56 tablet; Refills: 0, farhat Product Selection Permitted - Prednisone 20 mg Oral Tablet - take 2 tablets ORAL route once daily for 5 days; 10 tablet; Refills: 0, Product farhat Selection Permitted Critical care time excluding procedures: 13:22 Critical care time: Bedside Care: 20 minutes, Consultation: 10 minutes, Family farhat Intervention: 10 minutes. Total time: 40 minutes Signatures: Dispatcher [employer] Flash Lance MD MD cha Benton, Danielle, RN RN db
[2024-12-09 14:04] VITALS: TEMP 97.5
[2024-12-09 14:09] VITALS: BP 138/89; O2SAT 97
== END 2024-12-09 13:57 | disposition home or self-care (01) ==
LOC: ER 12:01
DX: T78.3XXA Angioneurotic edema, initial encounter (principal); Z91.038 Other insect allergy status
CPT/HCPCS: 36415; 80053; 85025; 93005; 96361; 96374; 96375; 99285; J1200; J7030; J7512